=== PATIENT | male | born 1975 | race Caucasian/White ===

== ENCOUNTER → 2019-04-16 | Emergency (ER) | payer SELFPAY ==
[~2019-04-16] MED LIST: Acetaminophen 500 MG TAB ONE; Bacitracin 1 PK ONE
--- NOTE | 2019-04-16 18:54 | CT ---
HEAD CT WITHOUT CONTRAST: 04/16/19 COMPARISON: None. HISTORY: Injury, trauma, pain. TECHNIQUE: Axial Ct imaging at 5 mm intervals from vertex through skull base without contrast. FINDINGS: Imaged paranasal sinuses/mastoid air cells well aerated. No displaced calvarial fracture. No intracra nial hemorrhage, midline shift, mass effect or ventricular enlargement. IMPRESSION: No acute findings. POS: H
== END ==
LOC: NAV ERS 18:16
DX: S01.01XA Laceration without foreign body of scalp, initial encounter (principal); I10 Essential (primary) hypertension; F17.220 Nicotine dependence, chewing tobacco, uncomplicated; Z79.899 Other long term (current) drug therapy; W17.89XA Other fall from one level to another, initial encounter
CPT/HCPCS: 70450

== ENCOUNTER 2019-04-24 11:39 | Emergency (ER) | payer SELFPAY | END 2019-04-24 12:04 | disposition home or self-care (01) | LOC: NAV ERS 11:39 | DX: S01.01XD Laceration without foreign body of scalp, subsequent encounter (principal); I10 Essential (primary) hypertension; F17.210 Nicotine dependence, cigarettes, uncomplicated; Z79.899 Other long term (current) drug therapy ==

== ENCOUNTER 2019-05-02 10:04 | Emergency (ER) | payer SELFPAY | END 2019-05-02 11:12 | disposition home or self-care (01) | LOC: NAV ERS 10:04 | DX: M54.5 Low back pain (principal); I10 Essential (primary) hypertension; F17.210 Nicotine dependence, cigarettes, uncomplicated | CPT/HCPCS: 99283 ==

== ENCOUNTER 2022-01-05 12:07 | Emergency (ER) | payer BC, OTHER ==
[2022-01-05] MEDS ORDERED: Fluorescein Opthalmic Strip ONE (12:29)
[2022-01-05] MEDS ORDERED: Tetracaine 0.5% PF 4 ML BOT ONE (12:29)
[2022-01-05] MEDS ORDERED: Gentamicin Ophth Soln 0.3% 5 ml Bottle ONE (12:35)
== END 2022-01-05 12:42 | disposition home or self-care (01) ==
LOC: NAV ERS 12:07
DX: S05.02XA Injury of conjunctiva and corneal abrasion without foreign body, left eye, initial encounter (principal); I10 Essential (primary) hypertension; F17.210 Nicotine dependence, cigarettes, uncomplicated; F17.220 Nicotine dependence, chewing tobacco, uncomplicated; Z79.899 Other long term (current) drug therapy; W22.8XXA Striking against or struck by other objects, initial encounter
CPT/HCPCS: 99283

== ENCOUNTER 2024-06-15 10:09 | Emergency (ER) | payer BC, SELFPAY ==
[2024-06-15] MEDS ORDERED: diphenhydrAMINE 50 MG/ML VIAL ONE (10:26)
[2024-06-15] MEDS ORDERED: methylPREDNISolone Sod Succ/PF 125 MG/2 ML VIAL ONE (10:26)
== END 2024-06-15 11:38 | disposition home or self-care (01) ==
LOC: NAV ERS 10:09
DX: S00.561A Insect bite (nonvenomous) of lip, initial encounter (principal); T78.40XA Allergy, unspecified, initial encounter; I10 Essential (primary) hypertension; F17.210 Nicotine dependence, cigarettes, uncomplicated; W57.XXXA Bitten or stung by nonvenomous insect and other nonvenomous arthropods, initial encounter
CPT/HCPCS: 96374; 96375; J1200; J2919